=== PATIENT | female | born 1945 | race Hispanic/Latino ===

== ENCOUNTER 2016-12-19 11:48 | Outpatient (CLI) | payer MEDICARE ==
[2016-12-19] MEDS ORDERED: NACL ONE (12:45)
--- NOTE | 2016-12-19 15:47 | Cat Scan Report ---
CTA CHEST: INDICATION: Pulmonary embolism. COMPARISON: None similar. FINDINGS: Chest CTA performed following intravenous administration of 100 cc of Omnipaque 350. Rotational MIP's also obtained. Normal heart size. No effusions. No aortic aneurysm, dissection or suspicious pulmonary arterial filling defects. Few aortic atherosclerotic calcifications. No size significant adenopathy. Normal airway. Unremarkable thyroid. Well-expanded lungs with numerous small calcified granulomas throughout both lungs as measuring up to 3 mm in the lingula, axial image 114, series 2, amongst others. Nonspecific distal esophageal wall thickening, not excluded for gastroesophageal reflux and/or hiatal hernia, amongst others. Images through included upper abdomen reveal a surgically absent gallbladder, few colonic diverticuli and cesp-fj-unnhgisu colonic stool/possible constipation. Chil-br-qqduuwmr, approximately 50% compression fracture with heterogeneous sclerosis of T12 is new. A central disc bulge/osteophyte complex at T11-T12 also again seen. Mild superior endplate depression of T11 and inferior endplate depressions of L1 and L2 again noted with possible Schmorl's nodes. Demineralized bones. Additional multilevel thoracic spine degenerative spurring noted with disc narrowing/vacuum phenomenon at few adi-tw-drsqt thoracic levels. CONCLUSION: 1. No acute chest CT abnormality or evidence of pulmonary embolism in this patient with multiple bilateral calcified lung nodules/old healed granulomatous disease. 2. Moderate recent T12 compression fracture, new since 10/23/2016. 3. Various other incidental findings, including distal esophageal thickening and diverticulosis, amongst others, as above. Thank you for the opportunity to participate in this patient's care.
== END 2016-12-19 11:49 | disposition home or self-care (01) ==
LOC: CT 11:48
PROVIDERS: ATTEND Radiology Diagnostic Radiology
DX: I26.99 Other pulmonary embolism without acute cor pulmonale (principal); I70.0 Atherosclerosis of aorta; J84.10 Pulmonary fibrosis, unspecified; K57.30 Diverticulosis of large intestine without perforation or abscess without bleeding; S22.089G Unspecified fracture of T11-T12 vertebra, subsequent encounter for fracture with delayed healing; M25.78 Osteophyte, vertebrae; R91.8 Other nonspecific abnormal finding of lung field; X58.XXXD Exposure to other specified factors, subsequent encounter; Z90.49 Acquired absence of other specified parts of digestive tract
CPT/HCPCS: 36415; 71275; 82565; 84520; Q9967

== ENCOUNTER 2016-12-31 06:17 | Day surgery (SDC) | payer MEDICARE ==
[~2016-12-31 06:17] MED LIST: ANCEF/STERILE WATER 2 GM/20 ML 20 ML IV NR; NACL 0.9% 1000 ML 1,000 ML IV SCH
[2016-12-31 07:23] LABS: Basophils % (Auto) 0.5 % (0.0-1.8); Hematocrit 35.7 % (30.3-42.9); Hemoglobin 11.9 gm/dl (10.1-14.3); Mean Corpuscular HGB Conc 34 % (30-34); Mean Corpuscular Hemoglobin 31 pg (28-32); Mean Corpuscular Volume 92 fl (79-97); Platelet Count 248 K/mm3 (140-440); Red Blood Count 3.88 M/mm3 (3.65-5.03); Red Cell Distribution Width 13.6 % (13.2-15.2); White Blood Count 5.3 K/mm3 (4.5-11.0)
[2016-12-31] MEDS ORDERED: SUBLIMAZE ONE (07:24)
[2016-12-31] MEDS ORDERED: DIPRIVAN 10 MG/ML IV ONE ×4 (07:24→09:03)
[2016-12-31 07:33] LABS: INR 1.02 (0.87-1.13)
[2016-12-31 07:38] LABS: Anion Gap 17 mmol/L; BUN/Creatinine Ratio 11.11; Blood Urea Nitrogen 10 mg/dL (7-17); Calcium 9.1 mg/dL (8.4-10.2); Carbon Dioxide 31 mmol/L (22-30); Chloride 95.3 mmol/L (98-107); Glucose 95 mg/dL (65-100); Potassium 3.8 mmol/L (3.6-5.0); Sodium 139 mmol/L (137-145)
--- NOTE | 2016-12-31 08:01 | Anesthesia Consultation ---
Anesthesia Consult and Med Hx Date of service: 12/31/16 - Airway Anesthetic Teeth Evaluation: Good ROM Head & Neck: Adequate Mental/Hyoid Distance: Adequate Mallampati Class: Class II Intubation Access Assessment: Probably Good - Pulmonary Exam CTA: Yes - Cardiac Exam Cardiac Exam: RRR - Pre-Operative Health Status ASA Pre-Surgery Classification: ASA2 Proposed Anesthetic Plan: General, MAC - Pulmonary Hx Smoking: No Hx Asthma: No Hx Respiratory Symptoms: Yes (PE last year) - Cardiovascular System Hx Hypertension: Yes Hx Peripheral Vascular Disease: Yes (DVT and PE last year; stopped xeralto saturday - filter placed) - Central Nervous System Hx Seizures: Yes (1 complex seizure after fall (2003) no meds, none since) Hx Psychiatric Problems: Yes - Gastrointestinal Hx Gastroesophageal Reflux Disease: Yes
--- NOTE | 2016-12-31 08:02 | Anesthesia Day of Surgery ---
Anesthesia Day of Surgery - Day of Surgery Patient Examined: Yes Patient H&P Reviewed: Yes Patient is NPO: Yes Beta Blockers: No Cardiac Clearance: No Pulmonary Clearance: No
[2016-12-31] MEDS ORDERED: XYLOCAINE 1%/ EPI 1:100,000 INFILTRATI ONE (08:03)
[2016-12-31] MEDS ORDERED: HEPARIN/NS 5000 UNIT/500ML(CATH LAB) 1,000 ML IR ONE (08:07)
[2016-12-31] MEDS ORDERED: NACL 0.9% 1000 ML 1,000 ML ONE ×2 (08:11→10:26)
[2016-12-31] MEDS ORDERED: ANCEF/STERILE WATER 2 GM/20 ML 20 ML IV ONE (08:29)
--- NOTE | 2016-12-31 09:49 | Short Stay Summary ---
Short Stay Documentation Date of service: 12/31/16 - History Principal diagnosis: T12 compression fracture H&P: obtained from office - Allergies and Medications Current Medications: Allergies No Known Allergies Allergy (Verified 12/31/16 07:02) Home Medications Medication Instructions Recorded Confirmed Last Taken Type AtorvaSTATin [Lipitor] 40 mg PO HS 12/31/16 12/31/16 12/30/16 History Losartan/Hydrochlorothiazide 1 tab PO QDAY 12/31/16 12/31/16 12/30/16 History [Losartan-Hctz 100-12.5 mg Tab] Pantoprazole [Protonix] 40 mg PO QDAY 12/31/16 12/31/16 12/30/16 History Rivaroxaban [Xarelto] 15 mg PO QDAY 12/31/16 12/31/16 12/26/16 History oxyCODONE [Roxicodone] 10 mg PO PRN PRN 12/31/16 12/31/16 12/30/16 History Active Medications Cefazolin Sodium (Ancef/Sterile Water 2 Gm/20 Ml) 20 mls @ 80 mls/hr IV PREOP NR PRN Reason: Protocol Stop: 12/31/16 23:59 Sodium Chloride (Nacl 0.9% 1000 Ml) 1,000 mls @ 42 mls/hr IV DIRECT ESTEFANY Last Admin: 12/31/16 07:30 Dose: 42 mls/hr - Brief post op/procedure progress note Date of procedure: 12/31/16 Pre-op diagnosis: T12 compression fracture Post-op diagnosis: same Procedure: T12 Kyphoplasty Anesthesia: MAC Surgeon: HA LUGO Estimated blood loss: minimal Pathology: none Condition: stable - Disposition Condition at discharge: Good Disposition: DISCHARGED TO HOME OR SELFCARE Short Stay Discharge Plan Activity: advance as tolerated Weight Bearing Status: Weight Bear as Tolerated Diet: regular Wound: keep clean and dry, per your surgeon's advice Follow up with: HA LUGO MD [Staff Physician] - 14 Days
--- NOTE | 2016-12-31 09:57 | Operative Report ---
Operative Report Operative Report: EXAM: T12 KYPHOPLASTY CLINICAL INDICATION: ACUTE T12 COMPRESSION FRACTURE CAUSING SIGNIFICANT BACK PAIN DATE: 12/31/2016 PROCEDURE: Following an explanation of the risks, benefits and alternatives; written informed consent was obtained. The patient was brought to the angiographic suite and placed in prone position on the examination table area following the induction of anesthesia, the patient's lower back was prepped and draped in the usual sterile fashion. 1% lidocaine was used for anesthesia An appropriate access site was chosen and needle directed towards the lateral wall of the left pedicle. A transpedicular approach was chosen given the patient's diminutive pedicles. The needle was advanced and directed using AP projection with 34 of caudal projection and 7 of SYRIAC. Contralateral views in crosstable's at 96 to 100 were also performed. The needle was advanced into the lateral wall of the T12 vertebral body. The cutting needle was removed and a drill was placed through the trocar. A drill was advanced towards the anterior aspect of the vertebral body. Multiple obliquities as described were utilized to demonstrate appropriate positioning of the drill towards the midline without extending through the anterior wall. An appropriate access site was chosen and the needle directed towards the lateral wall of the right pedicle. A transpedicular approach was chosen given the patient's diminutive pedicles. The needle was advanced and directed using 30 of caudal projection and 79 of SYRIAC. Contralateral crosstable views of 96 200 were also performed. As advanced to the lateral vertebral body. Needle was removed and a drill advanced through the trocar towards the anterior medial aspect of the vertebral body. Multiple obliquities as described were utilized to demonstrate appropriate positioning of the drill towards the midline without extending through the anterior wall. Owing appropriate positioning of the trocar needles, balloons were and advanced towards the anterior one third of the vertebral body. The balloons were insufflated to 160 katheryn on the right and 170 katheryn on the left. The balloons were left in place to allow cavity creation and the cement was mixed. Kyphoplasty cement was then directed to the needles. There is appropriate cross -filling across the midline. No extravasation of cement is seen through either the endplates or anterior or posterior wall. Following placement of glue, the needles were removed under fluoroscopic imaging to demonstrate no extravasation of glue. Sterile dressings were then applied. The patient tolerated the procedure well. There were no immediate post procedure competitions. Sedation was provided by anesthesia. Continuous cardiopulmonary monitoring was utilized. The patient was taken to PACU for recovery following the procedure. IMPRESSION: 1) T12 kyphoplasty using fluoroscopic guidance with adequate filling of the vertebral body with kyphoplasty cement. No evidence of cement extravasation.
--- NOTE | 2016-12-31 10:21 | Post Anesthesia Evaluation ---
- Post Anesthesia Evaluation Patient Participated: Yes Airway Patent: Yes Stable Respiratory Function: Yes Temp > 96.8F: Yes Pain Manageable: Yes Adequeate Hydration: Yes Anesthesia Complications: No Block Receding Appropriately: Not Applicable
[2016-12-31] MEDS ORDERED: PERCOCET 5/325 ONE (11:15)
[2016-12-31] MEDS ORDERED: PERCOCET 5/325 PO ONE (11:30)
[2016-12-31 12:19] VITALS: BP 115/63
== END 2016-12-31 12:32 | disposition home or self-care (01) ==
LOC: OPU 06:17
PROVIDERS: ATTEND Radiology Diagnostic Radiology
DX: M48.54XA Collapsed vertebra, not elsewhere classified, thoracic region, initial encounter for fracture (principal); I10 Essential (primary) hypertension; K21.9 Gastro-esophageal reflux disease without esophagitis; Z86.73 Personal history of transient ischemic attack (TIA), and cerebral infarction without residual deficits; Z86.711 Personal history of pulmonary embolism; Z82.49 Family history of ischemic heart disease and other diseases of the circulatory system; Z80.9 Family history of malignant neoplasm, unspecified
CPT/HCPCS: 22513; 36415; 80048; 85025; 85610; 85730; J0690; J1644; J2704; J3010; J7030; Q9967

== ENCOUNTER 2017-03-20 09:53 | Outpatient (CLI) | payer MEDICARE ==
[2017-03-20 10:22] LABS: Hematocrit 38.9 % (30.3-42.9); Hemoglobin 13.2 gm/dl (10.1-14.3); Mean Corpuscular HGB Conc 34 % (30-34); Mean Corpuscular Hemoglobin 31 pg (28-32); Mean Corpuscular Volume 92 fl (79-97); Platelet Count 235 K/mm3 (140-440); Red Blood Count 4.24 M/mm3 (3.65-5.03); Red Cell Distribution Width 13.5 % (13.2-15.2); White Blood Count 4.6 K/mm3 (4.5-11.0)
[2017-03-20 10:41] LABS: Alanine Aminotransferase 13 units/L (7-56); Albumin 4.4 g/dL (3.9-5); Albumin/Globulin Ratio 1.9 %; Alkaline Phosphatase 67 units/L (35-129); Anion Gap 17 mmol/L; BUN/Creatinine Ratio 14.44; Bilirubin,Total 0.5 mg/dL (0.1-1.2); Blood Urea Nitrogen 13 mg/dL (7-17); Calcium 9.5 mg/dL (8.4-10.2); Carbon Dioxide 28 mmol/L (22-30); Cholesterol 213 mg/dL (50-199); Glucose 111 mg/dL (65-100); HDL Cholesterol 76 mg/dL (40-59); LDL Cholesterol,Direct 109 mg/dL (50-130); Sodium 141 mmol/L (137-145); Total Protein 6.7 g/dL (6.3-8.2); Triglycerides 141 mg/dL (2-149)
[2017-03-20] MEDS ORDERED: NACL ONE (10:44)
--- NOTE | 2017-03-20 11:25 | Cat Scan Report ---
CTA CHEST: History: Chest pain. Technique: Helical CT following IV contrast. Pulmonary embolus protocol. Sagittal and coronal reformatted images. Rotational MIP images. Findings: Contrast bolus is satisfactory. No pulmonary embolus is identified. The thyroid gland, tracheobronchial tree, esophagus, heart, pericardium, mediastinal vessels, lung adan and bony thorax are unremarkable. Impression: No evidence for pulmonary embolus. Unremarkable CT chest with contrast.
--- NOTE | 2017-03-20 12:04 | XRay Report ---
ROUTINE CHEST, TWO VIEWS: HISTORY: Chest pain. The trachea, heart, mediastinal contour, lung adan and bony thorax are unremarkable. IMPRESSION: No acute cardiopulmonary process.
== END 2017-03-20 09:54 | disposition home or self-care (01) ==
LOC: CT 09:53
PROVIDERS: ATTEND Internal Medicine
DX: R07.9 Chest pain, unspecified (principal)
CPT/HCPCS: 36415; 71020; 71260; 80053; 80061; 84439; 84443; 85027; Q9967

== ENCOUNTER 2019-06-25 11:26 | Inpatient (IN) | payer MEDICARE ==
[2019-06-25] MEDS ORDERED: TYLENOL PO PRN (11:39)
--- NOTE | 2019-06-25 11:53 | Event Note ---
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 Please refer to office note for H&P. Plan: ASA, statins, nitrates, and beta blockers. PE protocol. CXR, BMP,CBC, cardiac enzymes. For [facility] tomorrow morning.
[2019-06-25] MEDS ORDERED: SODIUM CHLORIDE FLUSH SYRINGE 10 ML IV PRN (13:00)
[2019-06-25] MEDS ORDERED: ZOFRAN IV PRN (13:00)
--- NOTE | 2019-06-25 13:45 | XRay Report ---
CHEST 1 VIEW INDICATION: chest pain. COMPARISON: 03/20/2017 FINDINGS: Support devices: None. Heart: Normal. Lungs/Pleura: No acute air space or interstitial disease. Prominent bilateral interstitial opacities and extensive reticular high density opacities particularly in the left lung are unchanged compared t o the prior exam. Additional findings: Status post multilevel vertebral plasty. IMPRESSION: 1. No acute findings. 2. High-density opacities in the lungs suggest previous barium aspiration. Signer Name: Oleg Worthington MD Signed: 06/25/2019 1:41 PM Workstation Name: [id number]
[2019-06-25 15:25] LABS: Basophils % (Auto) 0.4 % (0.0-1.8); Eosinophils # (Auto) 0.3 K/mm3 (0.0-0.4); Eosinophils % (Auto) 4.2 % (0.0-4.3); Hematocrit 39.1 % (30.3-42.9); Hemoglobin 13.4 gm/dl (10.1-14.3); Lymphocytes # (Auto) 0.9 K/mm3 (1.2-5.4); Lymphocytes % (Auto) 14.5 % (13.4-35.0); Mean Corpuscular HGB Conc 34 % (30-34); Mean Corpuscular Volume 95 fl (79-97); Monocytes # (Auto) 0.6 K/mm3 (0.0-0.8); Monocytes % (Auto) 8.7 % (0.0-7.3); Platelet Count 221 K/mm3 (140-440); Red Blood Count 4.12 M/mm3 (3.65-5.03)
[2019-06-25 15:35] LABS: INR 0.96 (0.87-1.13)
[2019-06-25 15:50] LABS: Calcium 9.3 mg/dL (8.4-10.2)
[2019-06-25] MEDS: NITRO-BID 2% TP SCH ×2 (15:50→19:47)
[2019-06-25 15:55] LABS: Creatine Kinase MB 2.3 ng/mL (0.0-4.0)
[2019-06-25] MEDS ORDERED: COZAAR PO SCH (16:30)
--- NOTE | 2019-06-25 19:38 | Cat Scan Report ---
CTA CHEST WITH IV CONTRAST INDICATION / CLINICAL INFORMATION: Chest pain, PE protocol. Patient was unable to cooperate and the exam is suboptimal to cooperate TECHNIQUE: Axial CT images were obtained through the chest after injection of IV contrast. 3 plane MIP and/or 3D reconstructions were produced. All CT scans at this location are performed using CT dose reduction f or ALARA by means of automated exposure control. COMPARISON: None available. FINDINGS: PULMONARY ARTERIES: No pulmonary emboli. THORACIC AORTA: No significant abnormality. HEART: No significant abnormality. CORONARY ARTERIES: No significant calcification. PLEURA: No pleural effusion. No pneumothorax. LYMPH NODES: No significant adenopathy. LUNGS: No acute air space or interstitial disease. ADDITIONAL FINDINGS: None. UPPER ABDOMEN: No acute findings. SKELETAL STRUCTURES: Evidence of previous vertebral plasty lower thoracic spine IMPRESSION: 1. No CT evidence for pulmonary embolism. 2. No acute findings. Signer Name: Cuate Olivia MD Signed: 06/25/2019 7:33 PM Workstation Name: [id number]
[2019-06-25] MEDS ORDERED: PROTONIX PO SCH (22:00)
[2019-06-25] MEDS ORDERED: TOPROL XL PO SCH (22:00)
[2019-06-26 05:49] LABS: Calcium 8.9 mg/dL (8.4-10.2); Hemolysis Index 5
[2019-06-26 06:15] LABS: BUN/Creatinine Ratio 17; Blood Urea Nitrogen 15 mg/dL (7-17)
[2019-06-26] MEDS: NITRO-BID 2% TP SCH ×2 (06:45→12:41)
[2019-06-26 06:50] LABS: INR 0.98 (0.87-1.13); Partial Thromboplastin Time 26.1 Sec. (24.2-36.6)
[2019-06-26] MEDS ORDERED: NACL 0.9% 500 ML 500 ML ONE (08:58)
[2019-06-26] MEDS ORDERED: ASPIRIN ONE (08:59)
[2019-06-26 09:04] VITALS: BP 119/54
[2019-06-26] MEDS ORDERED: CALAN ONE (09:44)
[2019-06-26] MEDS ORDERED: HEPARIN 10,000 UNITS/10 ML ONE (09:44)
[2019-06-26] MEDS ORDERED: XYLOCAINE 2% INFILTRATI ONE (09:44)
[2019-06-26] MEDS ORDERED: HEPARIN/NS 5000 UNIT/500ML(CATH LAB) 1,000 ML IR ONE (09:44)
[2019-06-26] MEDS ORDERED: SUBLIMAZE ONE (09:45)
[2019-06-26] MEDS ORDERED: VERSED ONE (09:45)
[2019-06-26] MEDS ORDERED: NITROGLYCERIN SYRINGE 3 ML ONE (09:45)
[2019-06-26] MEDS ORDERED: LOVENOX SUB-Q SCH (10:00)
[2019-06-26] MEDS ORDERED: ASPIRIN PO SCH (10:00)
--- NOTE | 2019-06-26 11:22 | Short Stay Summary ---
Short Stay Documentation Date of service: 06/26/19 - History H&P: obtained from office - Allergies and Medications Current Medications: Allergies oxycodone Allergy (Verified 06/25/19 12:00) Itching Home Medications Medication Instructions Recorded Confirmed Last Taken Type AtorvaSTATin [Lipitor] 40 mg PO HS 12/31/16 06/25/19 06/24/19 20:00 History Cyclobenzaprine [Flexeril] 10 mg PO TID PRN #30 tablet 12/31/16 06/26/19 09:00 Rx 100mg Losartan/Hydrochlorothiazide 1 tab PO QDAY 12/31/16 06/25/19 06/24/19 20:00 History [Losartan-Hctz 100-12.5 mg Tab] Pantoprazole [Protonix] 40 mg PO QDAY 12/31/16 06/25/19 06/24/19 20:00 History 40mg Rivaroxaban [Xarelto] 15 mg PO QDAY 12/31/16 06/26/19 06/24/19 20:00 History oxyCODONE /ACETAMINOPHEN [Percocet 1 tab PO Q4HR PRN #30 tab 12/31/16 06/26/19 06/24/19 09:00 Rx 5/325] 40mg oxyCODONE [Roxicodone] 10 mg PO PRN PRN 12/31/16 06/26/19 06/24/19 History Active Medications Acetaminophen (Tylenol) 650 mg PO Q4H PRN PRN Reason: Pain MILD(1-3)/Fever >100.5/VANEGAS Aspirin (Aspirin) 325 mg PO QDAY [facility] Last Admin: 06/26/19 08:59 Dose: 325 mg Documented by: Atorvastatin Calcium (Lipitor) 40 mg PO QHS [facility] Last Admin: 06/25/19 22:56 Dose: 40 mg Documented by: Enoxaparin Sodium (Lovenox) 40 mg SUB-Q QDAY [facility] Losartan Potassium (Cozaar) 25 mg PO QDAY [facility] Last Admin: 06/25/19 16:51 Dose: 25 mg Documented by: Metoprolol Succinate (Toprol Xl) 50 mg PO [facility] Last Admin: 06/25/19 22:54 Dose: 50 mg Documented by: Nitroglycerin (Nitro-Bid 2%) 1 [facility] Protocol Last Admin: 06/26/19 06:45 Dose: Not Given Documented by: Ondansetron HCl (Zofran) 4 mg IV Q8H PRN PRN Reason: Nausea And Vomiting Pantoprazole Sodium (Protonix) 40 mg PO HS ESTEFANY Last Admin: 06/25/19 22:56 Dose: 40 mg Documented by: Sodium Chloride (Sodium Chloride Flush Syringe 10 Ml) 10 ml IV PRN PRN PRN Reason: LINE FLUSH Last Admin: 06/25/19 22:56 Dose: 10 ml Documented by: - Physical exam General appearance: no acute distress Integumentary: no rash HEENT: Atraumatic Lungs: Clear to auscultation Breasts: deferred Heart: Regular rate Gastrointestinal: normal Female Genitourinary: deferred Rectal Exam: deferred Extremities: no ischemia Neurological: Normal gait - Brief post op/procedure progress note Date of procedure: 06/26/19 Pre-op diagnosis: Chest Pain Post-op diagnosis: same Procedure: LHC and LV gram Anesthesia: MAC Findings: See report Surgeon: WAQAR ZELAYA Estimated blood loss: none Pathology: none Condition: stable - Hospital course Hospital course: Uneventful - Disposition Condition at discharge: Good Disposition: DC-01 TO HOME OR SELFCARE Short Stay Discharge Plan Activity: advance as tolerated Weight Bearing Status: Weight Bear as Tolerated Diet: low fat, low cholesterol, low salt Follow up with: PRERNA BREWER MD [Primary Care Provider] - 7 Days Prescriptions: Sertraline [Zoloft] 50 mg PO QDAY #30 tablet
--- NOTE | 2019-06-27 09:17 | Cardiac Catherization Report ---
LEFT HEART CATHETERIZATION ORDERING PHYSICIAN: Leonardo León MD PROCEDURES PERFORMED: 1. Selective left and right coronary angiography. 2. Left ventriculography. INDICATION: Chest pain and abnormal EKG. DESCRIPTION OF PROCEDURE: After obtaining the consent, the patient was draped using sterile technique. A 2% lidocaine was injected into the right wrist. A 5-Somali vascular sheath was inserted into the right radial artery. A 5-Somali JL3.5 catheter was used to selectively engage left coronary artery. A 5-Somali JR4 catheter was used to selectively engage the right coronary artery. A 5-Somali JR4 catheter was used to hand inject the left ventriculogram. No complications occurred during the procedure. Hemostasis was achieved using manual pressure. SPECIMEN REMOVED: None. TOTAL SEDATION ADMINISTERED: A 1 mg of IV Versed and 25 mcg of IV fentanyl. PHYSICIAN/PATIENT MAHT-YH-TIAT SEDATION START TIME: 10:14 a.m. PHYSICIAN/PATIENT [id number] SEDATION STOP TIME: 10:24 a.m. Total sedation time is 10 minutes. FINDINGS: HEMODYNAMICS: Aortic pressure 104/29. LV systolic pressure 108 mmHg, LV end diastolic pressure 14 mmHg. No significant gradient was noted across the left ventricular outflow tract. CARDIAC STRUCTURES: The left ventricle is normal in size and systolic function. The left ventricular ejection fraction is estimated at 60% with normal wall motion. CORONARY ANATOMY: 1. This is a right dominant circulation. 2. The left main is angiographically normal. 3. The LAD has mild diffuse 10% luminal irregularities. 4. The left circumflex artery has mild diffuse 10% luminal irregularities. 5. The right coronary artery has mild diffuse 10% luminal irregularities. IMPRESSION: 1. Mild diffuse nonobstructive coronary artery disease noted in this right dominant circulation. 2. Normal left ventricular ejection fraction. 3. Left ventricular end-diastolic pressure measured at 40 mmHg. RECOMMENDATIONS: Continue medical therapy and follow up with referring physician. The patient's Toprol-XL will be stopped due to the presence of a 2.2 second pause noted on telemetry. JOB# [id number] MINDI/CHARLEY
== END 2019-06-26 14:13 | disposition home or self-care (01) | DRG 287 ==
LOC: UNDOADMIN 11:26 → 4A 11:26
PROVIDERS: ADMIT Internal Medicine Cardiovascular Disease; ATTEND Internal Medicine Cardiovascular Disease
PROC: 4A023N7 Measurement of Cardiac Sampling and Pressure, Left Heart, Percutaneous Approach (ICD-10-PCS; principal; 2019-06-26)
PROC: B2111ZZ Fluoroscopy of Multiple Coronary Arteries using Low Osmolar Contrast (ICD-10-PCS; 2019-06-26)
PROC: B2151ZZ Fluoroscopy of Left Heart using Low Osmolar Contrast (ICD-10-PCS; 2019-06-26)
DX: R07.9 Chest pain, unspecified (principal); I10 Essential (primary) hypertension; I25.10 Atherosclerotic heart disease of native coronary artery without angina pectoris; Z88.5 Allergy status to narcotic agent
CPT/HCPCS: 36415; 71045; 71275; 80048; 82550; 82553; 82962; 84484; 85025; 85610; 85730; 93005; 93010; 93458; G0378; A9270-GY; C1894; J1644; J2250; J3010; J7040; Q9967

== ENCOUNTER 2019-10-19 11:47 | Outpatient (CLI) | payer MEDICARE ==
--- NOTE | 2019-10-19 13:29 | XRay Report ---
CHEST 2 VIEWS INDICATION: R07.2 PRECORDIAL PAIN. COMPARISON: 06/25/2019 FINDINGS: Support devices: None. Heart: Within normal limits. Pulmonary vasculature: Normal. Lungs/pleura: Lungs are mildly hyperexpanded and hyperlucent. No acute air space or interstitial dise ase. No pleural effusion. No pneumothorax. Additional findings: Status post multilevel lower thoracic kyphoplasty.. IMPRESSION: 1. No acute findings. 2. COPD. Signer Name: Oleg Worthington MD Signed: 10/19/2019 1:25 PM Workstation Name: [id number]
== END 2019-10-19 11:48 | disposition home or self-care (01) ==
LOC: XRAY 11:47
PROVIDERS: ATTEND Clinical Nurse Specialist Adult Health
DX: J44.9 Chronic obstructive pulmonary disease, unspecified (principal)
CPT/HCPCS: 71046

== ENCOUNTER 2020-12-28 10:48 | Outpatient (CLI) | payer MEDICARE ==
[2020-12-28 12:17] LABS: Blood Urea Nitrogen 13 mg/dL (7-17)
--- NOTE | 2020-12-28 13:05 | Cat Scan Report ---
CT angio chest INDICATION / CLINICAL INFORMATION: Shortness of breath. History of pulmonary embolus.. TECHNIQUE: Axial CT images were obtained after injection of Omnipaque 350, 100 cc IV contrast using CTA protocol . 3 plane MIP / 3D reconstructions were produced. All CT scans at this location are performed using C T dose reduction for ALARA by means of automated exposure control. COMPARISON: CTA chest 06/25/2019. FINDINGS: The lungs contain no mass, infiltrate or pleural fluid. Mild peripheral interstitial disease/scarring is present. There are changes of prior granulomatous exposure. No mediastinal mass or adenopathy. Coronary artery calcification is present. Imaging of the upper abd omen is unremarkable. No aneurysm, dissection or pulmonary embolus. Evaluation the bones demonstrates multiple sites of previous vertebroplasty at the lower thoracic spi ne. IMPRESSION: Negative for pulmonary embolus or pneumonia. Signer Name: Jae Wadsworth MD Signed: 12/28/2020 1:01 PM Workstation Name: [id number]
--- NOTE | 2020-12-29 11:02 | XRay Report ---
Right rib series 3 views INDICATION: Right rib pain IMPRESSION: No displaced right rib fracture is identified. Diffuse osteopenia. Signer Name: Ghanshyam Kennedy MD Signed: 12/29/2020 10:58 AM Workstation Name: [id number]
== END 2020-12-28 10:49 | disposition home or self-care (01) ==
LOC: CT 10:48
PROVIDERS: ATTEND Internal Medicine
DX: R06.00 Dyspnea, unspecified (principal); K21.9 Gastro-esophageal reflux disease without esophagitis; I10 Essential (primary) hypertension; Z86.711 Personal history of pulmonary embolism
CPT/HCPCS: 36415; 71100; 71275; 82565; 84520; Q9967

== ENCOUNTER 2021-06-02 16:57 | Emergency (ER) | payer MEDICARE ==
[2021-06-02 17:33] VITALS: BP 126/92
== END 2021-06-02 17:54 | disposition left against medical advice (07) ==
LOC: ED 16:57
DX: R53.83 Other fatigue (principal); Z53.21 Procedure and treatment not carried out due to patient leaving prior to being seen by health care provider

== ENCOUNTER 2022-07-16 17:01 | Emergency (ER) | payer MEDICARE ==
[2022-07-16 19:18] VITALS: BP 111/50
== END 2022-07-16 23:22 | disposition left against medical advice (07) ==
LOC: ED 17:01
DX: M54.9 Dorsalgia, unspecified (principal); M25.559 Pain in unspecified hip; Z53.21 Procedure and treatment not carried out due to patient leaving prior to being seen by health care provider; W19.XXXA Unspecified fall, initial encounter; Y93.89 Activity, other specified; Y92.89 Other specified places as the place of occurrence of the external cause; Y99.8 Other external cause status